=== PATIENT | male | born 1935 | race Caucasian/White ===

== ENCOUNTER → 2022-04-16 | Outpatient (CLI) | payer MEDICARE, SELFPAY ==
[2022-04-16 15:42] LABS: Hematocrit 42.5 % (40-54); Hemoglobin 13.1 g/dL (13.0-16.5); Mean Corp Hgb Conc 30.8 g/dL (32-36); Mean Corpuscular Hgb 29.4 pg (27.0-32.0); Mean Corpuscular Volume 95.3 fL (80-94); Mean Platelet Vol. 11.1 fl (6.2-12.0); Platelet Count 239 K/mm3 (150-450); RBC Distribution Width CV 13.2 % (11.6-14.6); RBC Distribution Width SD 46.8 fl (35.1-43.9); Red Blood Count 4.46 M/mm3 (4.6-6.2); White Blood Count 6.2 K/mm3 (4.4-11.0)
[2022-04-16 16:13] LABS: Anion Gap 10 (5-15); BUN 24 mg/dL (7-18); Calcium,Total 8.8 mg/dL (8.5-10.1); Chloride 107 mmol/L (98-107); Creatinine, Serum 1.09 mg/dL (0.70-1.30); EST Glomerular Filtration Rate 68 mL/min (>60); Est Glom Filt Rate - Afr Amer 82 mL/min (>60); Glucose 76 mg/dL (74-106); PSA,Total- Diagnostic 4.79 ng/mL (0.0-4.0); Sodium Level 143 mmol/L (136-145)
== END | disposition home or self-care (01) ==
LOC: LAB 13:58
PROVIDERS: PCP Family Medicine; Referring Provider Urology; Visit Provider Urology
DX: Z01.812 Encounter for preprocedural laboratory examination (principal); N40.1 Benign prostatic hyperplasia with lower urinary tract symptoms; N34.0 Urethral abscess
CPT/HCPCS: 36415; 80048; 84153; 85027

== ENCOUNTER → 2022-05-01 | Outpatient (CLI) | payer MEDICARE, SELFPAY ==
--- NOTE | 2022-05-01 13:30 | EKG12_ITS ---
Test Reason : PREOP Blood Pressure : / mmHG Vent. Rate : 060 BPM Atrial Rate : 060 BPM P-R Int : 186 ms QRS Dur : 128 ms QT Int : 424 ms P-R-T Axes : 041 060 035 degrees QTc Int : 424 ms Normal sinus rhythm with sinus arrhythmia Right bundle branch block Abnormal ECG Confirmed by ALCON ISABEL, JANE ([id number]), continuity editor RADHA SOUSA ([id number]) on 05/02/2022 8:50:00 AM Referred By: Guerrero Andrade Confirmed By:JANE RONDON MD
== END | disposition home or self-care (01) ==
LOC: PSN 13:28
PROVIDERS: PCP Family Medicine; Referring Provider Urology; Visit Provider Urology
DX: Z01.810 Encounter for preprocedural cardiovascular examination (principal)
CPT/HCPCS: 93005

== ENCOUNTER 2024-02-05 22:59 | Emergency (ER) | payer MEDICARE, SELFPAY ==
[2024-02-05 23:00] VITALS: BP 187/101; PULSE 77; RESP 16; TEMP 36.7; O2SAT 99; BMI 29.2
--- NOTE | 2024-02-05 23:43 | EKG12_ITS ---
Test Reason : CP Blood Pressure : */* mmHG Vent. Rate : 75 BPM Atrial Rate : 75 BPM P-R Int : 190 ms QRS Dur : 132 ms QT Int : 396 ms P-R-T Axes : 59 47 40 degrees QTcB Int : 442 ms Sinus rhythm with Fusion complexes Right bundle branch block Abnormal ECG Confirmed by SHAGGY SHAY ([id number]), associate editor TENZIN SOSA ([id number]) on 02/07/2024 11:57:12 AM Referred By: RAMON Confirmed By: SHAGGY SHAY
[2024-02-05 23:59] VITALS: BP 150/98; PULSE 64; RESP 18; O2SAT 92
[2024-02-05 23:59] LABS: Absolute Neutrophil Count 4.8 X10^3/uL (2.0-7.7); Basophil# 0.02 X10^3/uL; Basophil% 0.3 % (0-1); Eosinophil# 0.24 X10^3/uL; Eosinophils% 3.4 % (0-5); Hematocrit 39.9 % (40-54); Hemoglobin 12.9 g/dL (13.0-16.5); Lymphocyte % 18.3 % (19-41); Mean Corp Hgb Conc 32.3 g/dL (32-36); Mean Corpuscular Volume 92.8 fL (80-94); Mean Platelet Vol. 10.4 fl (6.2-12.0); Monocyte# 0.75 X10^3/uL; Monocyte% 10.5 % (0-10); NRBC Flagged by Analyzer 0 % (0-5); Neutrophil # 4.79 X10^3/uL (2.7-7.7); Neutrophil % 67.4 % (47-70); Platelet Count 244 K/mm3 (150-450); RBC Distribution Width CV 12.9 % (11.6-14.6); RBC Distribution Width SD 43.8 fl (35.1-43.9); White Blood Count 7.1 K/mm3 (4.4-11.0)
--- NOTE | 2024-02-05 23:59 | RAD_ITS ---
EXAM: XR Chest 2 Views INDICATION: Male, 88 years old. Chest pain. TECHNIQUE: PA and lateral views COMPARISON: None FINDINGS: DEVICES: None LUNGS: No confluent air space opacity. Mild prominence of interstitial markings throughout both lungs. No concerning pulmonary nodule. No pleural effusion or pneumothorax. MEDIASTINUM: Cardiac and mediastinal silhouettes are within normal limits. No central pulmonary vascular congestion. . SKELETAL STRUCTURES: Mild S-shaped scoliosis of the thoracic spine. 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 There is calcification aortic arch. UPPER ABDOMEN: Unremarkable RAD/Chest PA and Lateral IMPRESSION: Chronic appearing interstitial parenchymal change with no acute cardiopulmonary disease. Electronically Signed: Brown De León MD at 0:57 EST ,
[2024-02-06 00:30] LABS: Anion Gap 5 (5-15); BUN 24 mg/dL (7-18); BUN/Creat Ratio 21.6 RATIO (10-20); Calcium,Total 8.8 mg/dL (8.5-10.1); Chloride 110 mmol/L (98-107); Creatinine, Serum 1.11 mg/dL (0.70-1.30); EST Glomerular Filtration Rate 66 mL/min (>60); Est Glom Filt Rate - Afr Amer 80 mL/min (>60); Estimated Creatinine Clearance 41.69 ml/min; Glucose 89 mg/dL (74-106); Potassium 3.5 mmol/L (3.5-5.1); Sodium Level 143 mmol/L (136-145); Troponin-I HS 11 pg/mL (3.0-78.0)
[2024-02-06 00:59] VITALS: BP 137/99; PULSE 67; RESP 18; O2SAT 96
[2024-02-06 01:00] VITALS: BP 169/106; PULSE 73; RESP 18; O2SAT 99
--- NOTE | 2024-02-06 01:06 | EDS_ITS ---
HPI History of Present Illness Chief Complaint: Chest Pain Informant: patient and family Narrative Narrative: Patient is an 88-year-old male who denies any significant past medical history. He states that over the past 2 days or so he has had intermittent sharp m idsternal chest pain. He states the pain will come on without any type of stimulation such as deep breathing or physical activity. He states it is midsternal and sharp and does not radiate. He states that it only last for a few seconds to a minute and then resolves. He denies any nausea vomiting or diaphoresis associated with this. He states that he told his daughter about it this evening and was concerned this could be cardiac he was brought in for evaluation [facility] Medical History no medical history Home Medications ?Medication ?Instructions ?Recorded ?Last Taken ?Type NK 02/06/24 Unknown History Allergy/AdvReac Type Severity Reaction Status Date / Time No Known Allergies Allergy Verified 02/05/24 23:02 Family History unable to obtain Surgical History no surgical history Social History Smoking Status: Never smoker [facility] ED Constitutional Constitutional ED: Denies chills or fever(s) Eyes Eyes: Denies blurry vision, change in vision or diplopia ENT ENT ED: Denies sore throat Cardiovascular Cardiovascular: Reports chest pain; Denies palpitations or racing heartbeat Respiratory/Chest Respiratory/Chest: Denies cough or dyspnea Gastrointestinal Gastrointestinal: Denies abdominal pain, diarrhea, nausea or vomiting Genitourinary Genitourinary ED: Denies dysuria Musculoskeletal Musculoskeletal: Denies back pain, myalgias or neck pain Integumentary Denies rash Neurologic Neurologic: Denies headache(s) Hematologic/Lymphatic Hematologic/Lymphatic: Denies easy bleeding or easy bruising EXAM Physical Exam Const Vital Signs: 02/05/24 23:00 02/05/24 23:20 02/05/24 23:59 Temperature 98.0 F Temperature Source Temporal Pulse Rate 77 64 Respiratory Rate 16 18 Respiratory Effort Normal Blood Pressure 187/101 H 150/98 H Blood Pressure Mean 129 115 Pulse Ox 99 92 Oxygen Delivery Method Room Air Room Air 02/06/24 00:59 02/06/24 01:00 02/06/24 01:23 Temperature 98.0 F Temperature Source Pulse Rate 67 73 75 Respiratory Rate 18 18 18 Respiratory Effort Blood Pressure 137/99 H 169/106 H 176/106 H Blood Pressure Mean 111 127 129 Pulse Ox 96 99 98 Oxygen Delivery Method Room Air Room Air Positive well nourished and well developed General Appearance ED: well developed; Negative for pallor HEENT HEENT Narrative: Normocephalic atraumatic Eyes PERRL and EOMs intact bilaterally General Eye ED: Negative for scleral icterus Neck supple Neck Narrative: No carotid bruit noted Chest Wall Chest Narrative: No bony deformity or crepitance with palpation of the chest wall but there is reproducible midsternal to left anterior chest wall pain with palpation that patient states is similar to what he has been experiencing No overlying soft tissue changes to suggest trauma or infection Resp normal respiratory effort and clear to auscultation bilaterally Resp Narrative: Breath sounds are diminished throughout but overall clear to auscultation without signs of distress Cardio regular rate and regular rhythm Rate: other Other Details: Heart is regular rate and rhythm with a grade 3 out of 6 systolic murmur Radial and carotid pulses are equal and symmetric GI normal to inspection, nondistended, normoactive bowel sounds, non-tender, non- distended and no masses GI Narrative: No voluntary guarding or rigidity or pulsatile mass Auscultation: normoactive bowel sounds Palpation: soft Extremity normal to inspection Extremity Narrative: No asymmetric edema no pitting edema negative Homans' sign bilaterally Neuro oriented x3, CN's II-XII intact bilaterally and no sensory deficits noted Sensorium / Orientation: alert Motor Exam: strength 5/5 throughout Psych mental status grossly normal Skin no rashes or lesions noted and no wounds General Skin Exam: Negative for jaundice or pallor MDM MDM MDM Narrative Medical decision making narrative: Patient arrived to the ER hypertensive otherwise with stable vitals. He reported atypical chest pain and the fact it was sharp did not radiate did not cause nausea vomiting or diaphoresis and only lasted a few seconds to a few minutes and resolved. The pain did not change or worsen with inspiration he also denies any recent travel surgery or history of DVT/PE so I have low concern for pulmonary embolus. Also has the pain is intermittent and does not radiate and does not cause any type of vision change or neurologic deficit I have low concern for dissection and do not feel the need for D-dimer or CTA. In order to rule out acute coronary syndrome or potential lung pathology such as pneumonia or pneumothorax basic blood work and a chest x-ray were obtained. Chest x-ray revealed no acute finding. Troponin was 11 and his EKG did not show any signs of ischemia. I discussed with patient and family the standard protocol of repeating a delta but the patient is pain-free and has he has not had an abnormal cardiac rhythm while in the ER and his initial troponin is normal they do not want to have a delta troponin performed and therefore he will be discharged as requested History & Record Review Discussion w/independent historian: Patient and Family Lab Data Attestation: I reviewed the patient's lab results. Labs: Laboratory Results - last 24 hr 02/05/24 23:18 WBC 7.1 RBC 4.30 L Hgb 12.9 L Hct 39.9 L MCV 92.8 MCH 30.0 MCHC 32.3 RDW Std Deviation 43.8 RDW Coeff of Nellie 12.9 Plt Count 244 MPV 10.4 Immature Gran % (Auto) 0.100 Neut % (Auto) 67.4 Lymph % (Auto) 18.3 L [place] % (Auto) 10.5 H Eos % (Auto) 3.4 Baso % (Auto) 0.3 Absolute Neuts (auto) 4.8 Absolute Lymphs (auto) 1.30 Nucleated RBC % 0 Sodium 143 Potassium 3.5 Chloride 110 H Carbon Dioxide 29.0 Anion Gap 5 BUN 24 H Creatinine 1.11 Estim Creat Clear Calc 41.69 Est GFR (MDRD) Af Amer 80 Est GFR (MDRD) Non-Af 66 BUN/Creatinine Ratio 21.6 H Glucose 89 Calcium 8.8 Troponin I High Sens 11 Radiography Diagnostic Testing: Clinical Impression(s) from Imaging Studies Chest X-Ray 02/05/24 23:59 IMPRESSION: Chronic appearing interstitial parenchymal change with no acute cardiopulmonary disease. Electronically Signed: Brown De León MD at 0:57 EST , Chest x-ray as interpreted by the emergency medicine physician reveals no acute infiltrate pneumothorax or pleural effusion Discharge Plan Triage Chief Complaint: Chest Pain ED Provider: Raúl Jason Dx/Rx/DC Orders Clinical Impression: Nonspecific chest pain, Hypertension Instructions: ED Chest Pain, Uncertain Cause Prescriptions: No Action NK Primary Care Provider: Joseph Kirby Referrals: Kofi,Joseph, MD [Primary Care Provider] - Activity Restrictions/Additional Instructions: Your workup today did not show any sign of abnormal heart rhythm or active cardiac damage. Continue all your home medications as directed by your doctor and return to the ER should you have any further concerns Print Language: Persian Disposition Disposition: Home, Self Care Discharge Date/Time: 02/06/24 01:24
[2024-02-06 01:23] VITALS: BP 176/106; PULSE 75; RESP 18; TEMP 36.7; O2SAT 98
== END 2024-02-06 01:24 | disposition home or self-care (01) ==
PROVIDERS: Emergency Provider Emergency Medicine; PCP Family Medicine; Visit Provider Emergency Medicine
DX: R07.9 Chest pain, unspecified (principal); I10 Essential (primary) hypertension
CPT/HCPCS: 71046; 80048; 84484; 85025; 93005; 99283